=== PATIENT | female | born 1950 | race Caucasian/White ===

== ENCOUNTER 2016-11-07 03:08 | Emergency (ER) | payer OTHER ==
[~2016-11-07] VITALS: Ht 157.5 cm; Wt 71.5 kg
[~2016-11-07 03:08] MED LIST: ASPI-535 PO; BIOT25004 PO; HYDR-3498 PO; IBUP-1542 PO; MAGN250T5 PO; MULT-761 PO; NAPR220C2 PO; TRAZ100T15 PO; VIT1TABL85 PO
[2016-11-07 03:10] VITALS: Ht 157.5 cm; Wt 71.5 kg
[2016-11-07] MEDS ORDERED: morphine 4 MG/ML VIAL IV STA (03:27)
[2016-11-07] MEDS ORDERED: ONDANSETRON 4 MG INJ IV STA (03:27)
--- NOTE | 2016-11-07 03:36 | ERD ---
ER Documentation Chief Complaint Date/Time DATE: 11/07/16 TIME: 03:30 Chief Complaint Left flank pain started 2 days ago. HPI 66-year-old female presents here in emergency department for complaints of left flank pain radiating to left upper quadrant started 2 days ago. Patient started to have vomiting today. Patient describes the pain sharp pain, 8/10 scale, has been having on and off. Patient states whenever she has it, she feels very nauseous and dizzy. Patient was seen with primary care doctor, possibly may have passed a kidney stone. Patient did not have any radiology testing. Patient denies any dysuria. Patient denies any blood in the urine. Patient denies any fever or chills. ROS All systems reviewed and are negative except as per history of present illness. Medications Home Meds Active Scripts Hydrocodone Bit-Acetaminophen* (Amboy*) 5-325 Mg Tab, 1 TAB PO Q6 Y for PAIN, # 20 TAB Prov:MARILYN GRIFFIN PA-C 12/09/15 Ibuprofen* (Motrin*) 600 Mg Tab, 600 MG PO Q6H Y for PAIN AND OR ELEVATED TEMP, #30 TAB Prov:MARILYN GRIFFIN PA-C 12/09/15 Reported Medications Magnesium Oxide (Magnesium) 250 Mg Tablet, 250 MG PO DAILY, TAB 05/02/14 Vit D3/Folic Acid/B2/B6/B12 (Folgard Tablet) 1 Each Tablet, 1 TAB PO DAILY, TAB 05/02/14 Biotin (BIOTIN) 2,500 Mcg Capsule, 5000 MCG PO DAILY 05/02/14 Multivitamin (MULTI VITAMIN DAILY) 1 Each Tablet, 1 EACH PO DAILY 05/02/14 Naproxen* (Aleve*) 220 Mg Capsule, 220 MG PO BID, CAP 05/02/14 Aspirin Ec (Aspir 81) 81 Mg Tablet.dr, 81 MG PO DAILY 05/02/14 Trazodone Hcl* (Trazodone Hcl*) 100 Mg Tablet, 100 MG PO DAILY, TAB 05/02/14 Allergies Allergies: Coded Allergies: clindamycin (Verified Allergy, Unknown, 05/02/14) PMhx/Soc History of Surgery: Yes (hysterectomy 94, aoritc valve replacement, aortic bypass replacement 12, ) Anesthesia Reaction: No Hx Neurological Disorder: No Hx Respiratory Disorders: Yes (Asthma) Hx Cardiac Disorders: Yes (Afib) Hx Psychiatric Problems: No Hx Miscellaneous Medical Probl: Yes (arthritis, gastric reflux, kidney stone, IBS) Hx Alcohol Use: Yes (Socially) Hx Substance Use: No Hx Tobacco Use: No Smoking Status: Never smoker FmHx Family History: No coronary disease, No diabetes, No other Physical Exam Vitals Vital Signs Date Time Temp Pulse Resp B/P Pulse Ox O2 Delivery O2 Flow Rate FiO2 11/07/16 03:10 97.3 80 24 160/94 100 Physical Exam GENERAL: The patient is well developed and appropriate for usual state of health, in no apparent distress. CHEST: Clear to auscultation bilaterally. There are no rales, wheezes or rhonchi. HEART: Regular rate and rhythm. No murmurs, clicks, rubs or gallops. No S3 or S4. ABDOMEN: Soft, nontender and nondistended. Good bowel sounds. No rebound or guarding. No gross peritonitis. No gross organomegaly or masses. No Hassan sign or McBurney point tenderness. BACK: No midline or flank tenderness. EXTREMITIES: Equal pulses bilaterally. There is no peripheral clubbing, cyanosis or edema. No focal swelling or erythema. Full range of motion. Grossly neurovascularly intact. NEURO: Alert and oriented. Cranial nerves 2-12 intact. Motor strength in all 4 extremities with 5/5 strength. Sensation grossly intact. Normal speech and gait. SKIN: There is no apparent rash or petechia. The skin is warm and dry. HEMATOLOGIC AND LYMPHATIC: There is no evidence of excessive bruising or lymphedema. No gross cervical, axillary, or inguinal lymphadenopathy. Result Diagram: 11/07/16 0335 11/07/16 0335 Results 24 hrs Laboratory Tests Test 11/07/16 03:35 11/07/16 04:34 Alanine Aminotransferase (ALT/SGPT) 54IU/L Albumin 4.4g/dl Albumin/Globulin Ratio 1.37 Alkaline Phosphatase 115IU/L Anion Gap 19 Aspartate Amino Transf (AST/SGOT) 39IU/L Basophils # 0.010^3/ul Basophils % 0.5% Blood Urea Nitrogen 17mg/dl Calcium Level 9.8mg/dl Carbon Dioxide Level 30mmol/L Chloride Level 103mmol/L Creatinine 0.79mg/dl Direct Bilirubin 0.00mg/dl Eosinophils # 0.210^3/ul Eosinophils % 2.6% Globulin 3.20g/dl Glucose Level 113mg/dl Hematocrit 40.7% Hemoglobin 13.9g/dl Indirect Bilirubin 0.2mg/dl Lipase 64U/L Lymphocytes # 2.210^3/ul Lymphocytes % 28.6% Mean Corpuscular Hemoglobin 31.3pg Mean Corpuscular Hemoglobin Concent 34.1g/dl Mean Corpuscular Volume 91.7fl Mean Platelet Volume 9.2fl Monocytes # 0.610^3/ul Monocytes % 8.1% Neutrophils # 4.610^3/ul Neutrophils % 60.2% Nucleated Red Blood Cells # 0.010^3/ul Nucleated Red Blood Cells % 0.0/100WBC Platelet Count 10049^3/UL Potassium Level 3.8mmol/L Red Blood Count 4.4410^6/ul Red Cell Distribution Width 12.8% Sodium Level 148mmol/L Total Bilirubin 0.2mg/dl Total Protein 7.6g/dl Troponin I < 0.012ng/ml White Blood Count 7.610^3/ul Bedside Urine Blood 2+ Bedside Urine Glucose (UA) Negative Bedside Urine Ketones (LAB) Negative Bedside Urine Leukocyte Esterase (L Negative Bedside Urine Nitrite (LAB) Negative Bedside Urine Protein (LAB) Negative Bedside Urine pH (LAB) 6.5 Current Medications Medications (Trade) Dose Ordered Sig/Gwendolyn Route PRN Reason Start Time Stop Time Status Last Admin Dose Admin Morphine Sulfate (morphine) 4 mg ONCE STAT IV 11/07/16 03:27 11/07/16 03:28 DC 11/07/16 03:37 Ondansetron HCl (Zofran Inj) 4 mg ONCE STAT IV 11/07/16 03:27 11/07/16 03:28 DC 11/07/16 03:36 Iohexol (Omnipaque 300mg/ ml) 150 ml STK-MED ONCE .ROUTE 11/07/16 04:08 11/07/16 04:09 DC 11/07/16 04:46 Ketorolac Tromethamine (Toradol) 30 mg ONCE ONCE IV 11/07/16 04:54 11/07/16 04:55 DC Patient was given medication for pain here in emergency department, after treatment, patient verbalized feeling much better. Patient's pain is improved.Patient was given Zofran here in the emergency department. After treatment, patient was able to tolerate po fluids here in the emergency department without any vomiting. There is no signs and symptoms of dehydration. PROCEDURE: CT Abdomen and pelvis with contrast CLINICAL INDICATION: Abdominal pain TECHNIQUE: Spiral CT images through the abdomen and pelvis in and during administration of cc of contrast material. Multiplanar reconstructions. The total exam CTDI equals 13.08 mGy and the total exam DLP equals 759.99 mGy-cm. One or more of the following dose reduction techniques were used: automated exposure control, adjustment of the mA and/or kV according to patient size, or use of iterative reconstruction technique. COMPARISON: None. FINDINGS: Slight atelectasis of the lung bases is seen. No pleural effusion is seen. . There is mild cardiomegaly. Prosthetic aortic valve is seen. There may be a small hiatal hernia. The liver, spleen, adrenals, and pancreas are unremarkable in appearance. There is a 1.1 cm probable cortical cyst in the lower pole of the left kidney. There is left perinephric stranding with mild left hydronephrosis and hydroureter with periureteric stranding and fluid to the level of a 4 mm left mid ureter stone which is at the L4 level. No other ureter stones are seen and no stones are seen in the urinary bladder. No adenopathy or ascites is seen. There is no evidence for bowel obstruction, free air, or abscess. There is mild atherosclerotic change of the aorta and branches. Moderate colonic stool burden. Normal appendix. Tiny fat-containing umbilical hernia. The uterus is surgically absent. No gross adnexal region mass. Probable normal left ovary. The right ovary is not seen with certainty. There is mild degenerative change of the spine. IMPRESSION: 4 mm left mid ureter stone at the L4 level with left perinephric stranding and mild left hydronephrosis and hydroureter with periureteric stranding and fluid. Small probable left renal cyst. RPTAT: [facility] Physician Fabiola Date Time Electronically viewed and signed by Jannie Bland Physician on 11/07/2016 04 :49 LE/ CC: [place] HORVATH [employer] REPRESENTATIVE Procedures/MDM Medical Decision Making: Patient's symptoms most likely consistent with renal colic, there is a mid ureteral stone noted with mild hydronephrosis. No symptoms of septic stone. There is low suspicion for abdominal emergencies at this time. Patients abdominal exam is normal at this time. Patients radiology exam does not show any abdominal emergencies at this time. There is low suspicion for appendicitis, cholecystitis, abdominal aortic aneurysms or peritonitis at this time. There is low suspicion for sepsis. Patient appears well and is hemodynamically stable. Disposition: Home. Condition: Stable Prescription Amboy, ibuprofen, pyridium, tamsulosin, Zofran Instructions: Patient is advised to take medications as prescribed. Patient is advised to rest, increase fluid intake and do see a urologist specialist. Patient is advised that if symptoms are worse, severe abdominal pain, uncontrolled vomiting, high fever, severe flank pain, worst signs and symptoms, to return to the emergency department immediately. Otherwise, patient can follow up with primary care doctor in 5-7 days. Departure Diagnosis: Primary Impression: Renal colic on left side Condition: Stable Patient Instructions: Kidney Stone W/ Colic Additional Instructions: Patient is advised to take medications as prescribed. Patient is advised to rest , increase fluid intake and do see a urologist specialist. Patient is advised that if symptoms are worse, severe abdominal pain, uncontrolled vomiting, high fever, severe flank pain, worst signs and symptoms, to return to the emergency department immediately. Otherwise, patient can follow up with primary care doctor in 5-7 days. [place] HORVATH NP Nov 07, 2016 03:36
[2016-11-07 03:48] LABS: BASOPHILS % 0.5 % (0.0-2.0); EOSINOPHILS # 0.2 10^3/ul (0.0-0.5); EOSINOPHILS % 2.6 % (0.0-7.0); HEMATOCRIT 40.7 % (37.0-47.0); HEMOGLOBIN 13.9 g/dl (12.0-16.0); LYMPHOCYTES # 2.2 10^3/ul (0.8-2.9); LYMPHOCYTES % 28.6 % (15.0-51.0); MEAN CORPUSCULAR HEMOGLOBIN 31.3 pg (29.0-33.0); MEAN CORPUSCULAR HGB CONC 34.1 g/dl (32.0-37.0); MEAN CORPUSCULAR VOLUME 91.7 fl (82.0-101.0); MEAN PLATELET VOLUME 9.2 fl (7.4-10.4); MONOCYTE # 0.6 10^3/ul (0.3-0.9); MONOCYTES % 8.1 % (0.0-11.0); NEUTROPHIL # 4.6 10^3/ul (1.6-7.5); NEUTROPHILS % 60.2 % (39.0-77.0); PLATELET COUNT 253 10^3/UL (140-440); RED BLOOD COUNT 4.44 10^6/ul (4.20-5.40); RED CELL DISTRIBUTION WIDTH 12.8 % (11.5-14.5); UNCORRECTED WBC 7.6 10^3/ul (4.8-10.8); WHITE BLOOD COUNT 7.6 10^3/ul (4.8-10.8)
[2016-11-07 03:49] LABS: CONDITION 1
[2016-11-07 03:55] LABS: ALBUMIN 4.4 g/dl (3.3-4.9)
[2016-11-07 03:56] LABS: CHLORIDE 103 mmol/L (97-110); POTASSIUM 3.8 mmol/L (3.5-5.1); SODIUM 148 mmol/L (135-144)
[2016-11-07 03:58] LABS: ALBUMIN/GLOBULIN RATIO 1.37; ANION GAP 19 (8-16); ASPARTATE AMINO TRANSFERASE 39 IU/L (15-46); BILIRUBIN,INDIRECT 0.2 mg/dl (0-1.1); BILIRUBIN,TOTAL 0.2 mg/dl (0.2-1.3); CARBON DIOXIDE 30 mmol/L (21-31); CREATININE 0.79 mg/dl (0.44-1.00); TOTAL PROTEIN 7.6 g/dl (6.1-8.1)
[2016-11-07 03:59] LABS: ALANINE AMINOTRANSFERASE 54 IU/L (13-69); ALKALINE PHOSPHATASE 115 IU/L (42-121); BLOOD UREA NITROGEN 17 mg/dl (7-20); CALCIUM 9.8 mg/dl (8.4-10.2); GLUCOSE 113 mg/dl (70-220)
[2016-11-07] MEDS ORDERED: IOHEXOL 300MG/ML 150 ML BTL ONE (04:08)
[2016-11-07 04:17] LABS: TROPONIN-I < 0.012 ng/ml (0.00-0.12)
[2016-11-07 04:33] LABS: URINE BLOOD (Dip) POC 2+ (NEGATIVE)
--- NOTE | 2016-11-07 04:49 | RADRPT ---
PROCEDURE: CT Abdomen and pelvis with contrast CLINICAL INDICATION: Abdominal pain TECHNIQUE: Spiral CT images through the abdomen and pelvis in and during administration of cc of contrast material. Multiplanar reconstructions. The total exam CTDI equals 13.08 mGy and the tota l exam DLP equals 759.99 mGy-cm. One or more of the following dose reduction techniques were used: a utomated exposure control, adjustment of the mA and/or kV according to patient size, or use of itera tive reconstruction technique. COMPARISON: None. FINDINGS: Slight atelectasis of the lung bases is seen. No pleural effusion is seen. . There is mild cardio megaly. Prosthetic aortic valve is seen. There may be a small hiatal hernia. The liver, spleen, adrenals, and pancreas are unremarkable in appearance. There is a 1.1 cm probabl e cortical cyst in the lower pole of the left kidney. There is left perinephric stranding with mild left hydronephrosis and hydroureter with periureteric stranding and fluid to the level of a 4 mm le ft mid ureter stone which is at the L4 level. No other ureter stones are seen and no stones are see n in the urinary bladder. No adenopathy or ascites is seen. There is no evidence for bowel obstruct ion, free air, or abscess. There is mild atherosclerotic change of the aorta and branches. Moderate colonic stool burden. Normal appendix. Tiny fat-containing umbilical hernia. The uterus is surgi filemon absent. No gross adnexal region mass. Probable normal left ovary. The right ovary is not se en with certainty. There is mild degenerative change of the spine. IMPRESSION: 4 mm left mid ureter stone at the L4 level with left perinephric stranding and mild left hydronephro sis and hydroureter with periureteric stranding and fluid. Small probable left renal cyst. RPTAT: [facility] Physician Fabiola Date Time Electronically viewed and signed by Jannie Bland Physician on 11/07/2016 04:49 LE/
[2016-11-07] MEDS ORDERED: KETOROLAC 30 MG INJ IV ONE (04:54)
[2016-11-07 04:59] LABS: ADD UMIC YES; URINE BILIRUBIN (Dip) NEGATIVE (NEGATIVE); URINE BLOOD (Dip) 3+ (NEGATIVE); URINE COLOR LT. YELLOW (YELLOW); URINE GLUCOSE (Dip) NEGATIVE (NEGATIVE); URINE KETONES (Dip) NEGATIVE (NEGATIVE); URINE LEUKOCYTE ESTERASE (Dip) NEGATIVE (NEGATIVE); URINE NITRITE (Dip) NEGATIVE (NEGATIVE); URINE TOTAL PROTEIN (Dip) NEGATIVE (NEGATIVE); URINE UROBILINOGEN (Dip) 0.2 E.U./dL (0.1-1.0)
[2016-11-07] MEDS ORDERED: TAMS-14 PO (05:01)
[2016-11-07] MEDS ORDERED: HYDR-906 PO (05:01)
[2016-11-07] MEDS ORDERED: PHEN-538 PO (05:01)
[2016-11-07 05:13] LABS: URINE RBCS >200 /HPF (0)
[2016-11-07 05:14] LABS: BACTERIA,URINE MODERATE; SQUAMOUS EPITHELIAL CELL,UR FEW
[2016-11-07 05:28] VITALS: BP 138/72; PULSE 80; RESP 16; TEMP 98.1
== END 2016-11-07 05:29 | disposition home or self-care (01) ==
LOC: FTE 03:08
DX: N23 Unspecified renal colic (principal); R11.10 Vomiting, unspecified; J45.909 Unspecified asthma, uncomplicated; Z79.82 Long term (current) use of aspirin
CPT/HCPCS: 74177; 80053; 81001; 81003; 83690; 84484; 85025; 93005; J1885; J2270; J2405; Q9967; 36415; 96374; 96375